=== PATIENT | female | born 1960 | race Caucasian/White ===

== ENCOUNTER → 2018-07-07 | Outpatient (CLI) | payer OTHER ==
--- NOTE | 2018-07-07 10:27 | PCVCIMAG ---
APPROVED REPORT Study performed: 07/07/2018 09:00:26 EXAM: Comprehensive 2D, Doppler, and color-flow Echocardiogram Patient Location: Echo lab Status: routine BSA: 1.57 HR: 79 bpmBP: 160/94 mmHg Rhythm: NSR Other Information Study Quality: Good Risk Factors: Cardiac Risk Factors: Hyperlipidemia Indications Retinal thrombosis Echo Enhancing Agent Indication: Rule out Shunt Agent(s) / Amount(s) Used: Agitated Saline cc 2D Dimensions IVSd: 11.22 (7-11mm)LVOT Diam: 18.48 (18-24mm) LVDd: 33.35 mm PWd: 8.27 (7-11mm)Ascending Ao: 30.11 (22-36mm) LVDs: 25.45 (25-40mm) Left Atrium: 33.76 (27-40mm) Aortic Root: 26.70 mm LV Single Plane 4CH: 59.23 % LV Single Plane 2CH: 64.69 % Biplane EF: 61.5 % Volumes Left Atrial Volume (Systole) Single Plane 4CH: 33.99 mLSingle Plane 2CH: 43.86 mL LA ESV Index: 25.00 mL/m2 Aortic Valve AoV Peak William.: 1.26 m/s AO Peak Gr.: 6.36 mmHgLVOT Max P.10 mmHg LVOT Max V: 1.13 m/s SANJEEV Vmax: 2.40 cm2 Mitral Valve E/A Ratio: 1.0 MV Decel. Time: 152.97 ms MV E Max William.: 1.09 m/s MV A William.: 1.13 m/s IVRT: 110.73 ms TDI E/Lateral E': 13.63E/Medial E': 13.63 Medial E' William.: 0.08 m/s Lateral E' William.: 0.08 m/s Pulmonary Valve PV Peak Gr.: 3.53 mmHg Pulmonary Vein P Vein S: 0.61 m/sP Vein A: 0.30 m/s P Vein D: 0.40 m/sP Vein A Dur.: 103.8 msec P Vein S/D Ratio: 1.52 Left Ventricle The left ventricle is normal size. There is normal LV segmental wall motion. There is normal left ventricular wall thickness. Left ventricular systolic function is normal. The left ventricular ejection fraction is within the normal range. LVEF is 60-65%. The left ventricular diastolic function is normal. Right Ventricle The right ventricle is normal size. The right ventricular systolic function is normal. Atria The left atrium size is normal. Injection of contrast documented no interatrial shunt. The right atrium size is normal. Aortic Valve The aortic valve is normal in structure. No aortic regurgitation is present. There is no aortic valvular stenosis. Mitral Valve The mitral valve is normal in structure. Trace mitral regurgitation. No evidence of mitral valve stenosis. Tricuspid Valve The tricuspid valve is normal in structure. There is no tricuspid valve regurgitation noted. Pulmonic Valve The pulmonary valve is normal in structure. There is no pulmonic valvular regurgitation. Great Vessels The aortic root is normal in size. IVC is normal in size and collapses >50% with inspiration. Pericardium There is no pericardial effusion. <Conclusion> The left ventricle is normal size. LVEF is 60-65%. The aortic valve is normal in structure. The mitral valve is normal in structure. Trace mitral regurgitation. The tricuspid valve is normal in structure. There is no tricuspid valve regurgitation noted. There is no pericardial effusion. Injection of contrast documented no interatrial shunt.
--- NOTE | 2018-07-07 12:07 | PCVCIMAG ---
APPROVED REPORT Indications RETINAL THROMBOSIS Doppler Spectral Velocity Analysis PSV / EDVPSV / EDV ECA (R) 92 / 12 cm/sECA (L) 77 / 10 cm/s dICA (R) 68 / 22 cm/sdICA (L) 52 / 18 cm/s Jase (R) 64 / 19 cm/smICA (L) 74 / 27 cm/s pICA (R) 64 / 21 cm/spICA (L) 60 / 22 cm/s Bulb (R) 48 / 19 cm/sBulb (L) 50 / 19 cm/s dCCA (R) 70 / 18 cm/sdCCA (L) 71 / 22 cm/s mCCA (R) 90 / 26 cm/smCCA (L) 87 / 24 cm/s Vert (R) 37 / 7 cm/sVert (L) 66 / 23 cm/s ICA/CCA 0.75ICA/CCA 0.84 Basic Measurements Blood Pressure: Pulses: Right Left RightLeft Brachial(Sitting) 130/31hrGu321/92mmHgTemporal Findings The right carotid bulb has mild plaque. The right proximal internal carotid artery shows no significant stenosis. The right common carotid artery shows no significant stenosis. The right external carotid artery shows no significant stenosis. The left carotid bulb has mild plaque. The left proximal internal carotid artery shows no significant stenosis. The left common carotid artery shows no significant stenosis. The left external carotid artery shows no significant stenosis. Conclusion 1. Mild bilateral plaquing without significant stenosis 2. Antegrade vertebral flow
== END | disposition home or self-care (01) ==
LOC: PCVCIMAG 08:58
PROVIDERS: ATTEND Internal Medicine
DX: H43.9 Unspecified disorder of vitreous body (principal)
CPT/HCPCS: 93306; 93880